=== PATIENT | female | born 1970 | race Two or more races ===

== ENCOUNTER 2022-03-29 14:37 | Emergency (ER) | payer OTHER ==
[~2022-03-29] VITALS: Ht 162.6 cm; Wt 72.6 kg
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
[2022-03-29] MEDS ORDERED: KETOROLAC TROMETHAMINE INJ 30 MG/ML VIAL ONE (15:26)
[2022-03-29] MEDS ORDERED: LIDOCAINE 5% (PATCH) 1 EA PATCH TP ONE ×2 (15:26→15:30)
[2022-03-29] MEDS ORDERED: KETOROLAC TROMETHAMINE INJ 30 MG/ML VIAL IM ONE (15:30)
[2022-03-29] MEDS ORDERED: METHOCARBAMOL (750MG) 750 MG TABLET PO ONE (15:30)
--- NOTE | 2022-03-29 16:05 | NUR ---
LIDOCAINE PATCH WORKS PER PATIENT
--- NOTE | 2022-03-29 16:15 | NUR ---
AT BED SIDE FOR RE EVALUATION
[2022-03-29 16:24] VITALS: BP 136/80
[2022-03-29] MEDS ORDERED: NAPR-1164 PO (16:27)
[2022-03-29] MEDS ORDERED: METH-647 PO (16:27)
--- NOTE | 2022-03-29 16:32 | NUR ---
Patient discharged to home in stable condition. Written and verbal after care instructions given. Patient verbalizes understanding of instruction.
== END 2022-03-29 16:33 | disposition home or self-care (01) ==
LOC: ER 14:43
DX: S16.1XXA Strain of muscle, fascia and tendon at neck level, initial encounter (principal); S29.012A Strain of muscle and tendon of back wall of thorax, initial encounter; Z79.899 Other long term (current) drug therapy; V49.9XXA Car occupant (driver) (passenger) injured in unspecified traffic accident, initial encounter; Y93.89 Activity, other specified; Y92.89 Other specified places as the place of occurrence of the external cause; Y99.8 Other external cause status
CPT/HCPCS: 99283; 96372; J1885